=== PATIENT | female | born 1930 | race Caucasian/White ===

== ENCOUNTER 2016-08-27 15:18 | Emergency (ER) | payer MEDICARE ==
--- NOTE | 2016-09-09 08:25 | ER ---
ADMIT: 08/27/2016 RM/LOC: ER [facility] MR#: [id number] [address] [facility] [address] [address] [place] [address] Emergency Room Report SEX: F AGE: 86 : 1930 DATE: 08/27/2016 ADDENDUM: This is an 86-year-old white female , seemed a little bit weak and woozy earlier today. She says it got better but the family wanted her looked at. CT of the head, chest are negative. CBC, chemistry looks okay. We also did an EKG and troponin and that were negative as well. At this time, we are going to discharge her and have her follow up with her doctor this week. Advised on using like cane walker to get around. She does still stay at home and is capable according to family, but needs follow up. CONDITION ON DISCHARGE: Good. Kiran Toussaint MD/ kyleigh JOB #: [id number] CC: Kiran Toussaint MD, Attending Physician UNKNOWN, Family Physician
== END 2016-08-27 18:25 | disposition home or self-care (01) ==
LOC: ER 15:18
DX: R53.1 Weakness (principal); I10 Essential (primary) hypertension; E78.5 Hyperlipidemia, unspecified; Z88.0 Allergy status to penicillin; Z88.2 Allergy status to sulfonamides; Z79.899 Other long term (current) drug therapy

== ENCOUNTER → 2016-09-01 | Outpatient (CLI) | payer MEDICARE | END | disposition home or self-care (01) | LOC: RAD.S 10:23 | DX: G45.9 Transient cerebral ischemic attack, unspecified (principal); I65.23 Occlusion and stenosis of bilateral carotid arteries ==